=== PATIENT | female | born 1950 | race Caucasian/White ===

== ENCOUNTER 2016-11-12 08:48 | Inpatient (IN) | payer MEDICARE, OTHER ==
[~2016-11-12] VITALS: Ht 152.4 cm; Wt 68.7 kg
[~2016-11-12 08:48] MED LIST: ALPR1TAB7 PO; NEFA100; RISP3 PO; TRIH2TAB3 PO; VENL-68 PO
[2016-11-12 09:20] LABS: BASOPHILS % (AUTO) 0.2 % (0.0-2.0); EOSINOPHILS % (AUTO) 0.1 % (1.0-6.0); HEMATOCRIT 41.1 % (36-46); LYMPHOCYTES # (AUTO) 0.7 K/uL (1.0-4.8); LYMPHOCYTES % (AUTO) 9.3 % (22.0-44.0); MEAN CORPUSCULAR HEMOGLOBIN 30.5 pg (26.0-34.0); MEAN CORPUSCULAR VOLUME 90 fL (80-100); MONOCYTES # (AUTO) 0.6 K/uL (0.1-1.0); MONOCYTES % (AUTO) 8.6 % (2.0-9.0); NEUTROPHILS # (AUTO) 5.8 K/uL (1.8-7.7); NEUTROPHILS % (AUTO) 81.8 % (40.0-70.0); PLATELET COUNT (AUTO) 189 K/uL (150-450); RED BLOOD CELL COUNT(AUTO) 4.59 MIL/uL (4.00-5.20); RED CELL DISTRIBUTION WIDTH 14.3 % (11.5-14.5)
[2016-11-12 09:28] LABS: CALCIUM, TOTAL 8.9 mg/dL (8.8-10.5); CREATININE 1.4 mg/dL (0.60-1.30); POTASSIUM 3.7 mmol/L (3.5-5.1)
[2016-11-12 09:34] LABS: ALBUMIN 3.5 g/dL (3.4-5.0); BILIRUBIN,TOTAL 0.4 mg/dL (0.1-1.0); TOTAL PROTEIN, SERUM 7.6 g/dL (6.4-8.2)
[2016-11-12] MEDS ORDERED: MORPHINE SULFATE 4 MG/ML SYRINGE IVP ONE (10:45)
[2016-11-12] MEDS ORDERED: ONDANSETRON HCL 4 MG/2 ML VIAL IVP ONE ×2 (10:45→13:00)
[2016-11-12] MEDS ORDERED: SODIUM CHLORIDE 0.9% 1,000 ML IV ONE (10:45)
[2016-11-12 10:49] LABS: APPEARANCE,URINE CLOUDY (CLEAR); GLUCOSE, URINE (UA) NEGATIVE (NEGATIVE); KETONES,URINE NEGATIVE (NEGATIVE); LEUKOCYTE ESTERASE ,URINE LARGE (NEGATIVE); OCCULT BLOOD,URINE MODERATE (NEGATIVE); PH,URINE 8.5 (5.0-8.0); PROTEIN,URINE POS 1+ (NEGATIVE)
[2016-11-12 10:54] LABS: ADD UA MICROSCOPIC YES; WBC,URINE 51-100 /HPF (0-5)
[2016-11-12 10:55] LABS: TRIPLE PHOSPHATE CRYSTAL,UR Moderate /LPF (None Seen)
[2016-11-12] MEDS ORDERED: BARIUM SULFATE 0.1% SUSPENSION 450 ML BOTTLE PO ONE (11:30)
[2016-11-12 11:39] LABS: PROTHROMBIN TIME 10.7 SEC (9.4-11.6)
[2016-11-12] MEDS ORDERED: CefTRIAXone 1 GM/DEXTROSE 50 ML IV ONE (12:30)
[2016-11-12] MEDS ORDERED: IOVERSOL 350 MG/ML 100 ML VIAL ONE (12:56)
[2016-11-12] MEDS ORDERED: SODIUM CHLORIDE 0.9% 100 ML ONE (12:57)
[2016-11-12] MEDS ORDERED: HYDROmorphone 2 MG/ML SYRINGE IVP ONE ×2 (13:00→15:45)
[2016-11-12] MEDS ORDERED: 0.9% SODIUM CHLORIDE 10 ML SYRINGE IVP PRN (15:45)
[2016-11-12] MEDS ORDERED: ACETAMINOPHEN 325 MG TABLET PO PRN (15:45)
[2016-11-12] MEDS ORDERED: ONDANSETRON HCL 4 MG/2 ML VIAL IVP PRN ×2 (15:45→20:15)
[2016-11-12] MEDS ORDERED: METOCLOPRAMIDE HCL 5 MG/ML 2 ML VIAL IVP ONE (15:45)
[2016-11-12 17:34] VITALS: BP 129/81
[2016-11-12 20:00] VITALS: BP 136/83
[2016-11-12] MEDS ORDERED: IPRATROPIUM BROMIDE 0.5 MG/2.5 ML NEB SOLUTION NEB PRN (20:15)
[2016-11-12] MEDS ORDERED: SODIUM CHLORIDE 0.9% 1,000 ML IV SCH (20:15)
[2016-11-12] MEDS ORDERED: ALBUTEROL SULFATE 2.5 MG/0.5 ML NEB SOLUTION NEB PRN (20:15)
[2016-11-12] MEDS: PANTOPRAZOLE SODIUM 40 MG/VIAL IVP SCH (20:48)
[2016-11-12 23:59] VITALS: BP 136/79
[2016-11-13] MEDS ORDERED: ACETAMINOPHEN 650 MG RECTAL SUPPOSITORY PR PRN (00:30)
[2016-11-13 04:00] VITALS: BP 141/70
[2016-11-13 05:12] LABS: APPEARANCE,URINE CLOUDY (CLEAR); GLUCOSE, URINE (UA) NEGATIVE (NEGATIVE); KETONES,URINE TRACE mg/dL (NEGATIVE); LEUKOCYTE ESTERASE ,URINE SMALL (NEGATIVE); OCCULT BLOOD,URINE LARGE (NEGATIVE); PH,URINE 7.5 (5.0-8.0); PROTEIN,URINE POS 1+ (NEGATIVE)
[2016-11-13 05:27] LABS: ADD UA MICROSCOPIC YES
[2016-11-13 05:48] LABS: SQUAMOUS EPITHELIAL CELL,UR Few /LPF (None Seen)
[2016-11-13 06:56] LABS: BASOPHILS % (AUTO) 0.3 % (0.0-2.0); EOSINOPHILS % (AUTO) 0.2 % (1.0-6.0); HEMOGLOBIN 12.4 g/dL (12.0-16.0); LYMPHOCYTES # (AUTO) 0.7 K/uL (1.0-4.8); LYMPHOCYTES % (AUTO) 18.8 % (22.0-44.0); MEAN CORPUSCULAR HEMOGLOBIN 30.8 pg (26.0-34.0); MEAN CORPUSCULAR HGB CONC 34.4 G/dL (31.0-37.0); MEAN CORPUSCULAR VOLUME 90 fL (80-100); MONOCYTES # (AUTO) 0.8 K/uL (0.1-1.0); MONOCYTES % (AUTO) 18.9 % (2.0-9.0); NEUTROPHILS # (AUTO) 2.5 K/uL (1.8-7.7); NEUTROPHILS % (AUTO) 61.8 % (40.0-70.0); PLATELET COUNT (AUTO) 157 K/uL (150-450); RED BLOOD CELL COUNT(AUTO) 4.01 MIL/uL (4.00-5.20); RED CELL DISTRIBUTION WIDTH 14.2 % (11.5-14.5)
[2016-11-13 07:04] LABS: BILIRUBIN,TOTAL 0.2 mg/dL (0.1-1.0); CALCIUM, TOTAL 8.1 mg/dL (8.8-10.5); CREATININE 1.16 mg/dL (0.60-1.30); POTASSIUM 3.5 mmol/L (3.5-5.1); TOTAL PROTEIN, SERUM 6.6 g/dL (6.4-8.2)
[2016-11-13 08:02] VITALS: BP 110/52
[2016-11-13] MEDS: PANTOPRAZOLE SODIUM 40 MG/VIAL IVP SCH (08:41)
[2016-11-13 11:50] VITALS: BP 120/78
[2016-11-13] MEDS: CefTRIAXone 1 GM/DEXTROSE 50 ML IV SCH (15:53)
[2016-11-13] MEDS: DEXTROSE 5%-0.45% SODIUM CHL 1,000 ML IV SCH (15:53)
[2016-11-13 15:54] VITALS: BP 136/77
[2016-11-13 19:53] VITALS: BP 150/90
[2016-11-13 23:20] VITALS: BP 144/76
[2016-11-14] VITALS (7 sets, daily range): BP systolic 133–155; BP diastolic 76–93
[2016-11-14] MEDS: DEXTROSE 5%-0.45% SODIUM CHL 1,000 ML IV SCH ×2 (05:36→18:32)
[2016-11-14] MEDS: PANTOPRAZOLE SODIUM 40 MG/VIAL IVP SCH (08:22)
[2016-11-14] MEDS: CefTRIAXone 1 GM/DEXTROSE 50 ML IV SCH (13:33)
[2016-11-15 04:12] VITALS: BP 147/77
[2016-11-15 07:30] VITALS: BP 152/104
[2016-11-15] MEDS: PANTOPRAZOLE SODIUM 40 MG/VIAL IVP SCH (08:27)
[2016-11-15] MEDS: DEXTROSE 5%-0.45% SODIUM CHL 1,000 ML IV SCH (08:28)
[2016-11-15 11:22] VITALS: BP 157/74
== END 2016-11-15 13:05 | disposition home or self-care (01) | DRG 389 ==
LOC: EMS 08:50 → 4E 16:03
PROVIDERS: ADMIT Internal Medicine; ATTEND Internal Medicine
PROC: 0D9670Z Drainage of Stomach with Drainage Device, Via Natural or Artificial Opening (ICD-10-PCS; principal; 2016-11-12)
DX: K56.60 Unspecified intestinal obstruction (principal); N39.0 Urinary tract infection, site not specified; F29 Unspecified psychosis not due to a substance or known physiological condition; B96.20 Unspecified Escherichia coli [E. coli] as the cause of diseases classified elsewhere; Z88.8 Allergy status to other drugs, medicaments and biological substances; F32.9 Major depressive disorder, single episode, unspecified; Z87.440 Personal history of urinary (tract) infections; Z79.899 Other long term (current) drug therapy; Z85.44 Personal history of malignant neoplasm of other female genital organs; Z92.3 Personal history of irradiation
CPT/HCPCS: 74010; 74177; 87040; 87086; 93005; 96361; 96365; 96375; 96376; 99285; C9113; J0696; J1170; J2270; J2405; J2765; J7030; J7050

== ENCOUNTER 2017-01-14 17:41 | Inpatient (IN) | payer MEDICARE, OTHER ==
[~2017-01-14] VITALS: Ht 154.9 cm; Wt 62.8 kg
[~2017-01-14 17:41] MED LIST changes: -NEFA100; +NEFA100 PO
[2017-01-14] MEDS ORDERED: SODIUM CHLORIDE 0.9% 1,000 ML IV ONE (18:15)
[2017-01-14] MEDS ORDERED: HYDROmorphone 2 MG/ML SYRINGE IVP ONE (18:30)
[2017-01-14] MEDS ORDERED: ONDANSETRON HCL 4 MG/2 ML VIAL IVP ONE (18:30)
[2017-01-14] MEDS ORDERED: BARIUM SULFATE 0.1% SUSPENSION 450 ML BOTTLE PO ONE (19:00)
[2017-01-14 19:04] LABS: BASOPHILS % (AUTO) 0.2 % (0.0-2.0); EOSINOPHILS % (AUTO) 0.5 % (1.0-6.0); HEMATOCRIT 36.8 % (36-46); HEMOGLOBIN 12.5 g/dL (12.0-16.0); LYMPHOCYTES # (AUTO) 0.9 K/uL (1.0-4.8); LYMPHOCYTES % (AUTO) 18.9 % (22.0-44.0); MEAN CORPUSCULAR HEMOGLOBIN 30.2 pg (26.0-34.0); MEAN CORPUSCULAR VOLUME 89 fL (80-100); MONOCYTES # (AUTO) 0.8 K/uL (0.1-1.0); MONOCYTES % (AUTO) 15.7 % (2.0-9.0); NEUTROPHILS # (AUTO) 3.2 K/uL (1.8-7.7); NEUTROPHILS % (AUTO) 64.7 % (40.0-70.0); PLATELET COUNT (AUTO) 194 K/uL (150-450); RED BLOOD CELL COUNT(AUTO) 4.14 MIL/uL (4.00-5.20); RED CELL DISTRIBUTION WIDTH 14.1 % (11.5-14.5); WHITE BLOOD COUNT (AUTO) 4.9 K/uL (4.5-11.0)
[2017-01-14 19:12] LABS: CALCIUM, TOTAL 8.3 mg/dL (8.8-10.5); CREATININE 1.34 mg/dL (0.60-1.30); POTASSIUM 3.6 mmol/L (3.5-5.1)
[2017-01-14 19:18] LABS: ALBUMIN 2.9 g/dL (3.4-5.0); BILIRUBIN,TOTAL 0.4 mg/dL (0.1-1.0); TOTAL PROTEIN, SERUM 6.4 g/dL (6.4-8.2)
[2017-01-14] MEDS ORDERED: POTASSIUM CHL 20 MEQ/D5-NS 1,000 ML IV ONE (21:15)
[2017-01-14] MEDS ORDERED: ACETAMINOPHEN 650 MG RECTAL SUPPOSITORY PR ONE (21:15)
[2017-01-14] MEDS ORDERED: ONDANSETRON HCL 4 MG/2 ML VIAL IVP PRN ×2 (21:15)
[2017-01-14] MEDS ORDERED: IPRATROPIUM BROMIDE 0.5 MG/2.5 ML NEB SOLUTION NEB PRN (21:15)
[2017-01-14] MEDS ORDERED: 0.9% SODIUM CHLORIDE 10 ML SYRINGE IVP PRN (21:15)
[2017-01-14] MEDS ORDERED: ALBUTEROL SULFATE 2.5 MG/0.5 ML NEB SOLUTION NEB PRN (21:15)
[2017-01-14 22:22] VITALS: BP 129/83
[2017-01-14] MEDS: HEPARIN SODIUM,PORCINE 5,000 UNITS/ML VIAL SQ SCH (23:25)
[2017-01-15] MEDS ORDERED: INFLUENZA VIRUS VACCINE QVS 2017-18 (3YR+)/PF 60 MCG/0.5 ML SYRINGE IM ONE (00:45)
[2017-01-15 03:09] VITALS: BP 141/73
[2017-01-15] MEDS: MORPHINE SULFATE 2 MG/ML SYRINGE IVP PRN ×2 (03:10→15:24)
[2017-01-15 06:49] LABS: BASOPHILS % (AUTO) 0.4 % (0.0-2.0); EOSINOPHILS % (AUTO) 0.8 % (1.0-6.0); HEMATOCRIT 36.4 % (36-46); HEMOGLOBIN 12.3 g/dL (12.0-16.0); LYMPHOCYTES # (AUTO) 0.9 K/uL (1.0-4.8); LYMPHOCYTES % (AUTO) 20.5 % (22.0-44.0); MEAN CORPUSCULAR HEMOGLOBIN 30.2 pg (26.0-34.0); MEAN CORPUSCULAR HGB CONC 33.8 G/dL (31.0-37.0); MEAN CORPUSCULAR VOLUME 89 fL (80-100); MONOCYTES # (AUTO) 0.5 K/uL (0.1-1.0); MONOCYTES % (AUTO) 11.6 % (2.0-9.0); NEUTROPHILS % (AUTO) 66.7 % (40.0-70.0); PLATELET COUNT (AUTO) 205 K/uL (150-450); RED BLOOD CELL COUNT(AUTO) 4.08 MIL/uL (4.00-5.20); RED CELL DISTRIBUTION WIDTH 13.9 % (11.5-14.5); WHITE BLOOD COUNT (AUTO) 4.5 K/uL (4.5-11.0)
[2017-01-15 07:03] LABS: CALCIUM, TOTAL 8.1 mg/dL (8.8-10.5); CREATININE 1.26 mg/dL (0.60-1.30); MAGNESIUM 2.2 mg/dL (1.80-2.40); PHOSPHORUS 2.2 mg/dL (2.5-4.9)
[2017-01-15 07:32] VITALS: BP 117/67
[2017-01-15] MEDS: HEPARIN SODIUM,PORCINE 5,000 UNITS/ML VIAL SQ SCH ×3 (08:51→23:12)
[2017-01-15] MEDS: POTASSIUM CHL 20 MEQ/D5-NS 1,000 ML IV SCH ×2 (11:31→21:38)
[2017-01-15 11:57] VITALS: BP 134/74
[2017-01-15 15:20] VITALS: BP 132/74
[2017-01-15] MEDS ORDERED: ACETAMINOPHEN 650 MG RECTAL SUPPOSITORY PR PRN (16:00)
[2017-01-15 19:13] VITALS: BP 142/73
[2017-01-15 23:22] VITALS: BP 127/56
[2017-01-16 04:10] VITALS: BP 121/81
[2017-01-16 07:12] VITALS: BP 132/78
[2017-01-16] MEDS: HEPARIN SODIUM,PORCINE 5,000 UNITS/ML VIAL SQ SCH ×3 (08:43→23:25)
[2017-01-16] MEDS: POTASSIUM CHL 20 MEQ/D5-NS 1,000 ML IV SCH ×2 (08:45→20:45)
[2017-01-16 11:04] LABS: ADD UA MICROSCOPIC YES; APPEARANCE,URINE CLOUDY (CLEAR); GLUCOSE, URINE (UA) NEGATIVE (NEGATIVE); KETONES,URINE NEGATIVE (NEGATIVE); LEUKOCYTE ESTERASE ,URINE LARGE (NEGATIVE); OCCULT BLOOD,URINE MODERATE (NEGATIVE); PH,URINE 8.5 (5.0-8.0); PROTEIN,URINE TRACE (NEGATIVE)
[2017-01-16 11:09] VITALS: BP 136/61
[2017-01-16 11:14] LABS: RENAL EPITHELIAL CELLS,URINE Few /LPF (None Seen); WBC,URINE 26-50 /HPF (0-5)
[2017-01-16 15:35] VITALS: BP 156/79
[2017-01-16 19:28] VITALS: BP 130/84
[2017-01-16 22:28] LABS: GLUCOSE,POINT OF CARE 127 MG/DL (70-110)
[2017-01-16 23:10] VITALS: BP 131/94
[2017-01-17 04:53] VITALS: BP 148/70
[2017-01-17] MEDS: POTASSIUM CHL 20 MEQ/D5-NS 1,000 ML IV SCH ×2 (06:50→16:51)
[2017-01-17 07:09] VITALS: BP 133/70
[2017-01-17] MEDS: HEPARIN SODIUM,PORCINE 5,000 UNITS/ML VIAL SQ SCH ×3 (10:32→23:26)
[2017-01-17 11:26] VITALS: BP 146/92
[2017-01-17 15:43] VITALS: BP 135/68
[2017-01-17 19:44] VITALS: BP 158/78
[2017-01-17 23:48] VITALS: BP 119/58
[2017-01-18] MEDS: POTASSIUM CHL 20 MEQ/D5-NS 1,000 ML IV SCH ×2 (02:41→23:04)
[2017-01-18 04:53] VITALS: BP 150/86
[2017-01-18] MEDS: HEPARIN SODIUM,PORCINE 5,000 UNITS/ML VIAL SQ SCH ×3 (08:00→23:04)
[2017-01-18 08:13] VITALS: BP 151/92
[2017-01-18 11:40] VITALS: BP 161/102
[2017-01-18] MEDS: VENLAFAXINE HCL 150 MG ER CAPSULE PO SCH (13:11)
[2017-01-18] MEDS: CefTRIAXone 1 GM/DEXTROSE 50 ML IV SCH (13:11)
[2017-01-18] MEDS: AmLODIPine BESYLATE 5 MG TABLET PO SCH (13:11)
[2017-01-18 15:00] VITALS: BP 149/85
[2017-01-18 19:43] VITALS: BP 153/97
[2017-01-18 23:13] VITALS: BP 149/91
[2017-01-19 05:00] VITALS: BP 152/94
[2017-01-19 07:30] VITALS: BP 164/97
[2017-01-19] MEDS: HEPARIN SODIUM,PORCINE 5,000 UNITS/ML VIAL SQ SCH (08:17)
[2017-01-19] MEDS: AmLODIPine BESYLATE 5 MG TABLET PO SCH (08:18)
[2017-01-19] MEDS: VENLAFAXINE HCL 150 MG ER CAPSULE PO SCH (08:18)
[2017-01-19 12:00] VITALS: BP 138/88
[2017-01-19] MEDS: CefTRIAXone 1 GM/DEXTROSE 50 ML IV SCH (12:19)
[2017-01-19] MEDS ORDERED: LEVO500 PO (12:52)
[2017-01-19] MEDS ORDERED: BISA10S PR (12:53)
== END 2017-01-19 15:00 | disposition home or self-care (01) | DRG 389 ==
LOC: EMS 17:42 → 6N 21:10
PROVIDERS: ADMIT Hospitalist; ATTEND Hospitalist
DX: K56.609 Unspecified intestinal obstruction, unspecified as to partial versus complete obstruction (principal); N39.0 Urinary tract infection, site not specified; N18.3 Chronic kidney disease, stage 3 (moderate); F32.9 Major depressive disorder, single episode, unspecified; B96.20 Unspecified Escherichia coli [E. coli] as the cause of diseases classified elsewhere; F41.9 Anxiety disorder, unspecified; Z85.44 Personal history of malignant neoplasm of other female genital organs; Z92.3 Personal history of irradiation; Z28.21 Immunization not carried out because of patient refusal
CPT/HCPCS: 74010; 74177; 82962; 83735; 84100; 87086; 96361; 96374; 96375; 99285; J0696; J1170; J1644; J2270; J2405; J3480; J7030

== ENCOUNTER 2018-05-29 15:18 | Emergency (ER) | payer MEDICARE, OTHER ==
[~2018-05-29] VITALS: Ht 152.4 cm; Wt 68.2 kg
[~2018-05-29 15:18] MED LIST changes: +BISA10S PR; +LEVO500 PO
[2018-05-29] MEDS ORDERED: GuaiFENesin/D-METHORPHAN [SUGAR-FREE] 200-20MG/10 ML SYRUP UDCUP PO ONE (15:45)
[2018-05-29] MEDS ORDERED: ACETAMINOPHEN/CODEINE 300-30 MG TABLET PO ONE (15:45)
[2018-05-29 16:11] LABS: BASOPHILS % (AUTO) 0.4 % (0.0-2.0); EOSINOPHILS % (AUTO) 0.2 % (1.0-6.0); HEMATOCRIT 36.3 % (36-46); HEMOGLOBIN 12.1 g/dL (12.0-16.0); LYMPHOCYTES # (AUTO) 0.8 K/uL (1.0-4.8); LYMPHOCYTES % (AUTO) 10.6 % (22.0-44.0); MEAN CORPUSCULAR HEMOGLOBIN 29.5 pg (26.0-34.0); MEAN CORPUSCULAR HGB CONC 33.4 G/dL (31.0-37.0); MEAN CORPUSCULAR VOLUME 88 fL (80-100); MONOCYTES # (AUTO) 0.6 K/uL (0.1-1.0); MONOCYTES % (AUTO) 7.3 % (2.0-9.0); NEUTROPHILS # (AUTO) 6.3 K/uL (1.8-7.7); NEUTROPHILS % (AUTO) 81.5 % (40.0-70.0); PLATELET COUNT (AUTO) 195 K/uL (150-450); RED BLOOD CELL COUNT(AUTO) 4.11 MIL/uL (4.00-5.20); RED CELL DISTRIBUTION WIDTH 13.8 % (11.5-14.5)
[2018-05-29 16:20] LABS: CALCIUM, TOTAL 9.3 mg/dL (8.8-10.5); CREATININE 1.25 mg/dL (0.60-1.30); POTASSIUM 4.2 mmol/L (3.5-5.1)
[2018-05-29 17:01] VITALS: BP 100/66
== END 2018-05-29 17:27 | disposition home or self-care (01) ==
LOC: EMS 15:19
DX: J40 Bronchitis, not specified as acute or chronic (principal); J02.9 Acute pharyngitis, unspecified; R07.89 Other chest pain; F41.9 Anxiety disorder, unspecified; F32.9 Major depressive disorder, single episode, unspecified; Z88.8 Allergy status to other drugs, medicaments and biological substances